=== PATIENT | male | born 1945 | race Two or more races ===

== ENCOUNTER 2019-04-15 09:13 | Outpatient (CLI) | payer OTHER | END 2019-04-15 09:16 | disposition home or self-care (01) | LOC: TOM 09:13 | DX: I71.4 Abdominal aortic aneurysm, without rupture (principal) | CPT/HCPCS: 74174; Q9965 ==

== ENCOUNTER 2022-12-22 16:48 | Emergency (ER) | payer OTHER ==
[~2022-12-22] VITALS: Ht 170.2 cm; Wt 72.6 kg
[2022-12-22] MEDS ORDERED: AMLODIPINE BESY10 MG PO (17:11)
[2022-12-22] MEDS ORDERED: GALANTAMINE HBR8 MG PO (17:11)
[2022-12-22] MEDS ORDERED: FENOFIBRATE50 MG PO (17:12)
[2022-12-22] MEDS ORDERED: CARVEDILOL ER40 MG PO (17:12)
[2022-12-22] MEDS ORDERED: COZAAR100 MG PO (17:12)
[2022-12-22] MEDS ORDERED: METFORMIN HCL500 M3 PO (17:13)
[2022-12-22] MEDS ORDERED: PLAVIX75 MG PO (17:13)
[2022-12-22] MEDS ORDERED: LIPITOR40 M1 PO (17:13)
== END 2022-12-23 00:05 | disposition home or self-care (01) ==
LOC: ER 16:48
DX: K52.9 Noninfective gastroenteritis and colitis, unspecified (principal); E86.0 Dehydration; Z88.6 Allergy status to analgesic agent; Z85.89 Personal history of malignant neoplasm of other organs and systems; I11.9 Hypertensive heart disease without heart failure